=== PATIENT | male | born 2000 ===

== ENCOUNTER 2023-12-05 10:52 | Emergency (ER) | payer BC, SELFPAY ==
[2023-12-05 11:00] VITALS: PULSE 104; RESP 28; O2SAT 98
--- NOTE | 2023-12-05 11:08 | PC.NURSE ---
PATIENT LWBS DID NOT GET TEMP. OR BLOOD PRESSURE.
--- NOTE | 2023-12-05 11:09 | PC.NURSE ---
During triage patient states how long will it be before you can put this back in place? Told patient we have no medication here and will possible have to tranfer him to the ED. Patient stated that he would leave now, so his insurance wouldn't be charged. Patient then left from triage.
== END 2023-12-05 11:17 | disposition left against medical advice (07) ==
PROVIDERS: Emergency Provider Registered Nurse
DX: Z53.21 Procedure and treatment not carried out due to patient leaving prior to being seen by health care provider (principal)
CPT/HCPCS: 99199